=== PATIENT | female | born 1975 | race Caucasian/White ===

== ENCOUNTER 2019-03-12 18:53 | Emergency (ER) | payer OTHER, BC ==
[~2019-03-12] VITALS: Ht 162.6 cm; Wt 74.0 kg
[2019-03-12] MEDS ORDERED: IV NORMAL SALINE 1,000ML 1,000 ML IV ONE (19:30)
[2019-03-12] MEDS ORDERED: ONDANSETRON PF 4 MG/2 ML VIAL. IV ONE (19:45)
[2019-03-12] MEDS ORDERED: KETOROLAC 15 MG/ML VIAL. IV ONE (19:45)
[2019-03-12] MEDS ORDERED: IOHEXOL 300 MG/ML 75 ML VIAL. IART ONE (19:45)
[2019-03-12 20:12] LABS: BASO % 1 % (0-3); EOS # 0.2 x10^3/uL (0.0-0.7); EOS % 3 % (0-3); HEMATOCRIT 42.5 % (36.0-47.0); HEMOGLOBIN 14.9 g/dL (12.0-15.5); LYMPH # 2.7 x10^3/uL (1.0-4.8); LYMPH % 44 % (24-48); MEAN CORPUSCULAR HEMOGLOBIN 32 pg (25-35); MEAN CORPUSCULAR HGB CONC 35 g/dL (31-37); MEAN CORPUSCULAR VOLUME 92 fL (79-100); MONO # 0.6 x10^3/uL (0.0-1.1); MONO % 9 % (0-9); NEUT # 2.6 x10^3uL (1.8-7.7); NEUT % 43 % (31-73); PLATELET COUNT 168 x10^3/uL (140-400); RED BLOOD COUNT 4.63 x10^6/uL (3.50-5.40); RED CELL DISTRIBUTION WIDTH 12.6 % (11.5-14.5)
[2019-03-12 20:18] LABS: BILIRUBIN,URINE NEG (NEG); CLARITY,URINE HAZY; COLOR,URINE YELLOW; GLUCOSE,URINE NEG (NEG); NITRITE,URINE NEG (NEG); UROBILINOGEN,URINE 0.2 mg/dL (0.2 mg/dL)
[2019-03-12 20:19] LABS: BACTERIA,URINE 0 /HPF (0-FEW); RBC,URINE OCC /HPF (0-2); SQUAMOUS EPITHELIAL CELL,UR OCC /LPF; WBC,URINE 0 /HPF (0-4)
[2019-03-12 20:27] LABS: ALBUMIN/GLOBULIN RATIO 1.2 (1.0-1.7); CALCIUM 8.3 mg/dL (8.5-10.1); GFR 60.2; MAGNESIUM 1.7 mg/dL (1.8-2.4); POTASSIUM 3.8 mmol/L (3.5-5.1); TOTAL BILIRUBIN 0.6 mg/dL (0.2-1.0); TOTAL PROTEIN 7.4 g/dL (6.4-8.2)
[2019-03-12 21:10] VITALS: BP 105/71
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
[2019-03-12] MEDS ORDERED: ACETAMINOPHEN/CODEINE 300/30MG TABLET ONE (21:55)
[2019-03-12] MEDS ORDERED: ACET-704 PO (21:55)
[2019-03-12] MEDS ORDERED: ACETAMINOPHEN/CODEINE 300/30MG TABLET PO ONE (22:00)
== END 2019-03-12 22:00 | disposition home or self-care (01) ==
LOC: ER 18:53
DX: R10.12 Left upper quadrant pain (principal); R10.32 Left lower quadrant pain; R10.31 Right lower quadrant pain; M54.6 Pain in thoracic spine; M54.5 Low back pain; J45.909 Unspecified asthma, uncomplicated; G89.11 Acute pain due to trauma; R30.0 Dysuria; V89.2XXA Person injured in unspecified motor-vehicle accident, traffic, initial encounter; Y93.89 Activity, other specified; Y92.488 Other paved roadways as the place of occurrence of the external cause; Y99.8 Other external cause status
CPT/HCPCS: 36415; 71260; 74177; 80053; 81001; 83690; 83735; 85025; 96374; 96375; 99285; J1885; J2405; Q9967; J7030

== ENCOUNTER 2020-12-22 11:14 | Emergency (ER) | payer BC, OTHER ==
[~2020-12-22] VITALS: Ht 162.6 cm; Wt 85.0 kg
[~2020-12-22 11:14] MED LIST: ACET-704 PO
[2020-12-22 11:18] VITALS: BP 136/83
--- NOTE | 2020-12-22 12:16 | PHYS DOC ---
Past History Past Medical History: Anxiety, Asthma, Depression Past Surgical History: , Hysterectomy Smoking: Non-smoker Alcohol Use: Rarely Drug Use: None General Adult EDM: Chief Complaint: right foot pain HPI: HPI: Patient is a 45 year old female who presented to the ER today for evaluation of right foot pain since 2 days ago, patient as moving her right foot and heard a pop and then has pain since, hurt to walk. Review of Systems: Review of Systems: Constitutional: Denies fever or chills Eyes: Denies change in visual acuity HENT: Denies nasal congestion or sore throat Respiratory: Denies cough or shortness of breath Cardiovascular: Denies chest pain or edema GI: Denies abdominal pain, nausea, vomiting, bloody stools or diarrhea : Denies dysuria Musculoskeletal: Positive for right foot pain. Integument: Denies rash Neurologic: Denies headache, focal weakness or sensory changes Endocrine: Denies polyuria or polydipsia Lymphatic: Denies swollen glands Psychiatric: Denies depression or anxiety Allergies: Allergies: Allergies Coded Allergies Type Severity Reaction Last Updated Verified No Known Drug Allergies 03/12/19 No Physical Exam: PE: Constitutional: Well developed, well nourished, no acute distress, non-toxic appearance. [] HENT: Normocephalic, atraumatic, bilateral external ears normal, oropharynx moist, no oral exudates, nose normal. [] Eyes: PERRLA, EOMI, conjunctiva normal, no discharge. [] Neck: Normal range of motion, no tenderness, supple, no stridor. [] Cardiovascular:Heart rate regular rhythm, no murmur [] Lungs & Thorax: Bilateral breath sounds clear to auscultation [] Abdomen: Bowel sounds normal, soft, no tenderness, no masses, no pulsatile masses. [] Skin: Warm, dry, no erythema, no rash. [] Back: No tenderness, no CVA tenderness. [] Extremities: Right foot is tender at the base of 5th metatarsal bone. NO SWELLING , no cyanosis, no clubbing, ROM intact, no edema. [] Neurologic: Alert and oriented X 3, normal motor function, normal sensory function, no focal deficits noted. [] Psychologic: Affect normal, judgement normal, mood normal. [] Current Patient Data: Vital Signs: Vital Signs Date Time Temp Pulse Resp B/P (MAP) Pulse Ox O2 Delivery O2 Flow Rate FiO2 12/22/20 11:18 97.9 86 16 136/83 (100) 97 Room Air EKG: EKG: [] Radiology/Procedures: Radiology/Procedures: [][address] [address] IMAGING REPORT Signed PATIENT: TEE LOMBARDI PACCOUNT: [id number] : 1975 LOCATION: ER AGE: 45 SEX: F EXAM STATUS: REG ER ORD. PHYSICIAN: ARIANNA AVILES DO REASON: right foot pain PROCEDURE: FOOT RIGHT 3V EXAM: XR FOOT_RIGHT 3 VIEWS 12/22/2020 11:56 AM CLINICAL INDICATION: Right foot pain COMPARISON: None TECHNIQUE: 3 views of the right foot FINDINGS: No acute fracture. Alignment is normal. Joint spaces are maintained. There is a tiny osteophyte at the great toe MTP joint. Small plantar calcaneal enthesophyte. No focal soft tissue abnormality. IMPRESSION: No acute osseous abnormality. Electronically signed by: Nancy Peralta MD (12/22/2020 12:20 PM) [id number] DICTATED AND SIGNED BY: NANCY PERALTA MD DATE: 12/22/20 1219 CC: IKE SILVA; ARIANNA AVILES DO ~MTH0 0 Heart Score: Risk Factors: Risk Factors: DM, Current or recent (<one month) smoker, HTN, HLP, family history of CAD, obesity. Risk Scores: Score 0 - 3: 2.5% MACE over next 6 weeks - Discharge Home Score 4 - 6: 20.3% MACE over next 6 weeks - Admit for Clinical Observation Score 7 - 10: 72.7% MACE over next 6 weeks - Early Invasive Strategies Course & Med Decision Making: Course & Med Decision Making Pertinent Labs and Imaging studies reviewed. (See chart for details) [] Dragon Disclaimer: Dragon Disclaimer: This electronic medical record was generated, in whole or in part, using a voice recognition dictation system. Departure Departure: Impression: Primary Impression: Arthritis of foot, right, degenerative Disposition: 01 DC HOME SELF CARE/HOMELESS Condition: STABLE Referrals: IKE SILVA (PCP) Follow up with your doctor as needed, wear post op shoe as needed. take ibuprofen 600 mg every 8 hours as needed for pain. Patient Instructions: Arthritis, Degenerative-Brief Additional Instructions: Thank you for visiting our Emergency Department. We appreciate you trusting us with your care. If any additional problems come up don't hesitate to return to visit us. Please follow up with your primary care provider so they can plan additional care if needed and know about the problem that you had. If symptoms worsen come back to the Emergency Department. Any concerning symptoms that start such as chest pain, shortness of air, weakness or numbness on one side of the body, running high fevers or any other concerning symptoms return to the ER. ARIANNA AVILES DO Dec 22, 2020 12:16
--- NOTE | 2020-12-22 12:22 | RAD ---
EXAM: XR FOOT_RIGHT 3 VIEWS 12/22/2020 11:56 AM CLINICAL INDICATION: Right foot pain COMPARISON: None TECHNIQUE: 3 views of the right foot FINDINGS: No acute fracture. Alignment is normal. Joint spaces are maintained. There is a tiny osteo phyte at the great toe MTP joint. Small plantar calcaneal enthesophyte. No focal soft tissue abnormal ity. IMPRESSION: No acute osseous abnormality. Electronically signed by: Nancy Peralta MD (12/22/2020 12:20 PM) [id number]
== END 2020-12-22 13:26 | disposition home or self-care (01) ==
LOC: ER 11:14
DX: M19.071 Primary osteoarthritis, right ankle and foot (principal); F41.9 Anxiety disorder, unspecified; J45.909 Unspecified asthma, uncomplicated; F32.9 Major depressive disorder, single episode, unspecified
CPT/HCPCS: 73630; 99283